=== PATIENT | male | born 1960 | race Two or more races ===

== ENCOUNTER 2019-05-06 11:01 | Inpatient (IN) | payer MEDICAID ==
[~2019-05-06] VITALS: Ht 182.9 cm; Wt 104.5 kg
[2019-05-06] MEDS ORDERED: ondansetron/PF 4mg/2ml inj IV ONE (11:40)
[2019-05-06] MEDS ORDERED: oxyCODONE/APAP 10/325mg tablet PO ONE (12:05)
[2019-05-06 12:11] LABS: BASOPHILS % (AUTO) 0.2 % (0-1); EOSINOPHILS # (AUTO) 0.1 X10'3 (0-0.9); EOSINOPHILS % (AUTO) 1.6 % (0-6); HEMATOCRIT 45.9 % (42.0-52.0); HEMOGLOBIN 15.5 g/dl (14.0-17.9); LYMPHOCYTES # (AUTO) 1.9 X10'3 (1.1-4.8); LYMPHOCYTES % (AUTO) 24.4 % (21-51); MEAN CORPUSCULAR HGB CONC 33.7 g/dL (33.0-36.5); MEAN PLATELET VOLUME 9.5 FL (7.4-10.4); MONOCYTES # (AUTO) 0.6 X10'3 (0-0.9); MONOCYTES % (AUTO) 7.7 % (2-12); NEUTROPHILS # (AUTO) 5.3 X10'3 (1.8-7.7); NEUTROPHILS % (AUTO) 66.1 % (42-75); PLATELET COUNT 210 X10'3 (140-440); RED BLOOD COUNT 5.16 X10'6 (4.70-6.10)
[2019-05-06 12:19] LABS: ALANINE AMINOTRANSFERASE 58 U/L (12-78); ALBUMIN 4.4 G/DL (3.4-5.0); ALBUMIN/GLOBULIN RATIO 1.1 (1.1-1.5); ALKALINE PHOSPHATASE 72 IU/L (46-116); ANION GAP 15 (8-16); ASPARTATE AMINO TRANSFERASE 49 U/L (10-37); BILIRUBIN,TOTAL 0.7 MG/DL (0.1-1.0); BLOOD UREA NITROGEN 56 MG/DL (7-18); BUN/CREATININE RATIO 13.4 (5.4-32.0); CALCIUM 9.2 MG/DL (8.5-10.1); CHLORIDE 98 MMOL/L (99-107); CREATININE 4.19 MG/DL (0.60-1.10); GLUCOSE 133 MG/DL (70-104); LIPASE 76 U/L (73-393); POTASSIUM 4.3 MMOL/L (3.5-5.1); SODIUM 136 MMOL/L (135-145); TOTAL PROTEIN 8.4 G/DL (6.4-8.2); eGFR 15 ML/MIN
[2019-05-06 12:38] LABS: CLARITY,URINE SLIGHTLY CLOUDY (Clear); COLOR,URINE YELLOW (Yellow); GLUCOSE, URINE NEGATIVE (Neg); KETONES,URINE NEGATIVE (Neg); LEUKOCYTE ESTERASE ,URINE NEGATIVE (Neg); NITRITES, URINE NEGATIVE (Neg); OCCULT BLOOD,URINE LARGE (Neg); PH,URINE 5.5 (4.8-8.0); PROTEIN,URINE 100 mg/dl (Neg); UROBILINOGEN,URINE 0.2 E.U/dL (0.2-1.0)
[2019-05-06 12:39] LABS: UA COLLECTION TYPE FOLEY CATH
[2019-05-06] MEDS ORDERED: magnesium 2GM in 50ml NS 50 ML IV PRN (13:10)
[2019-05-06] MEDS ORDERED: acetaminophen 325mg tablet PO PRN ×2 (13:10)
[2019-05-06] MEDS ORDERED: potassium CL 10mEq/100ml bag 100 ML IV PRN ×2 (13:10)
[2019-05-06] MEDS ORDERED: haloperidol lactate 5mg/ml inj IM PRN (13:10)
[2019-05-06] MEDS ORDERED: LORazepam 1 MG tablet PO PRN (13:10)
[2019-05-06] MEDS ORDERED: potassium Cl 20 mEq SR tablet PO PRN ×2 (13:10)
[2019-05-06] MEDS ORDERED: LORazepam 2 mg/ml vial IV PRN (13:10)
[2019-05-06] MEDS ORDERED: dextrose 50%-water 50ml dispensing syringe IV PRN (13:10)
[2019-05-06] MEDS ORDERED: morphine 2 MG/ML inj. syringe IV PRN ×2 (13:10)
[2019-05-06] MEDS ORDERED: ondansetron/PF 4mg/2ml inj IV PRN (13:10)
[2019-05-06] MEDS ORDERED: thiamine 100mg/ml 2ml inj. IV ONE (13:10)
[2019-05-06] MEDS ORDERED: magnesium Cl slow-release 64mg tablet PO PRN (13:10)
[2019-05-06] MEDS ORDERED: HYDROcodone/acetaminophen 5mg/325mg tablet PO PRN (13:10)
[2019-05-06] MEDS ORDERED: magnesium 4gm in 100ml NS 100 ML IV PRN (13:10)
[2019-05-06] MEDS ORDERED: haloperidol 5mg tablet PO PRN (13:10)
[2019-05-06 13:20] LABS: TRANSITIONAL EPI CELLS,URINE FEW /HPF
[2019-05-06 13:21] LABS: BACTERIA,URINE 1+ /HPF (Neg); SQUAMOUS EPITHELIAL CELL,UR FEW /LPF (FEW)
[2019-05-06] MEDS ORDERED: IPRA3AMP31 IH (14:39)
[2019-05-06] MEDS ORDERED: METO50TA7 PO (14:39)
[2019-05-06] MEDS ORDERED: RIVA20TA PO (14:39)
[2019-05-06] MEDS ORDERED: OMEP40CA37 PO (14:39)
[2019-05-06] MEDS ORDERED: LOSA25TA96 PO (14:39)
[2019-05-06] MEDS ORDERED: ALBU8.5H8 INH (14:39)
[2019-05-06] MEDS ORDERED: LORA10TA7 PO (14:39)
[2019-05-06] MEDS ORDERED: DILT240C90 PO (14:39)
[2019-05-06] MEDS ORDERED: UMEC62.5 PO (14:39)
[2019-05-06] MEDS ORDERED: FLO0.4C PO (14:39)
[2019-05-06] MEDS ORDERED: ATOR40TA PO (14:39)
[2019-05-06] MEDS ORDERED: DIGO125T PO (14:42)
[2019-05-06] MEDS ORDERED: PER10325T PO (14:42)
[2019-05-06] MEDS ORDERED: NITR0.4T51 SL (14:42)
[2019-05-06] MEDS ORDERED: LOPE2CAP PO (14:42)
[2019-05-06] MEDS ORDERED: FURO-150 PO (14:42)
[2019-05-06 15:15] VITALS: BP 120/83
[2019-05-06 15:43] LABS: CLARITY,URINE CLEAR (Clear); COLOR,URINE YELLOW (Yellow); GLUCOSE, URINE NEGATIVE (Neg); KETONES,URINE NEGATIVE (Neg); LEUKOCYTE ESTERASE ,URINE NEGATIVE (Neg); NITRITES, URINE NEGATIVE (Neg); OCCULT BLOOD,URINE MODERATE (Neg); PH,URINE 5.5 (4.8-8.0); PROTEIN,URINE 30 mg/dl (Neg); UROBILINOGEN,URINE 0.2 E.U/dL (0.2-1.0)
[2019-05-06] MEDS: normal saline 1000ml 1,000 ML IV SCH (15:44)
[2019-05-06 15:45] LABS: UA COLLECTION TYPE FOLEY CATH
[2019-05-06 15:49] LABS: URINE AMPHETAMINE SCREEN POSITIVE (Neg); URINE BARBITUATE SCREEN NEGATIVE (Neg); URINE BENZODIAZEPINES SCREEN NEGATIVE (Neg); URINE CANNABINOID SCREEN NEGATIVE (Neg); URINE COCAINE SCREEN NEGATIVE (Neg); URINE METHADONE SCREEN NEGATIVE (Neg); URINE OPIATE SCREEN POSITIVE (Neg); URINE PHENCYCLIDINE SCREEN NEGATIVE (Neg)
[2019-05-06 15:51] LABS: BACTERIA,URINE FEW /HPF (Neg); MUCUS STRANDS FEW /LPF (Neg); SQUAMOUS EPITHELIAL CELL,UR MODERATE /LPF (FEW); TRANSITIONAL EPI CELLS,URINE FEW /HPF
--- NOTE | 2019-05-06 16:11 | NUR ---
Patient in room PCU 3023. I have received report from Elena CHESTER from ED and had the opportunity to ask questions and assume patient care.
--- NOTE | 2019-05-06 16:11 | NUR ---
97.3 78 18 120/83 98% on RA, Patient transferred from ED to PCU room 3023B at 1515 with 1 RN, able to ambulate to bed with limited assistance, in bed resting, denies pain/discomfort, all needs met at this time. will continue to monitor.
[2019-05-06] MEDS ORDERED: non-formulary drug (Albuterol Sulfate (Proair Hfa) 2 PUFFS) INH PRN (16:20)
[2019-05-06] MEDS ORDERED: ipratropium/albuterol 3ml nebule IH PRN (16:20)
[2019-05-06] MEDS: HYDROcodone/acetaminophen 10/325mg tab PO PRN (17:30)
--- NOTE | 2019-05-06 18:16 | NUR ---
ORIENTEE documentation: I have reviewed and agree with all interventions, assessments performed and documented by HENRIK BAHENA.
--- NOTE | 2019-05-06 18:17 | NUR ---
Problems reprioritized. Patient report given, questions answered & plan of care reviewed with Ksenia CHESTER.
--- NOTE | 2019-05-06 18:27 | NUR ---
Patient in room PCU 3023. I have received report from HENRIK Gibbons and had the opportunity to ask questions and assume patient care.
[2019-05-06] MEDS: docusate sod 100mg capsule PO SCH (20:00)
[2019-05-06] MEDS: heparin, porcine 5000 units/ml vial SQ SCH (20:00)
[2019-05-06] MEDS ORDERED: temazepam 15mg capsule PO PRN (21:00)
[2019-05-06 23:00] VITALS: BP 98/67
--- NOTE | 2019-05-07 00:14 | NUR ---
Patient refuse norco 5mg and states his pain level is at a 10. He expressed to me that norco 5 mg does not help his pain. I wasted the medication with charge nurse HENRIK Goodman after i had already saved the medication under administer. Will link a note to the medication.
[2019-05-07] MEDS: HYDROcodone/acetaminophen 10/325mg tab PO PRN ×6 (00:20→23:20)
--- NOTE | 2019-05-07 00:27 | NUR ---
[place] 5mg marked as "undo" gave patient 10 mg prn norco instead. Wasted 5 mg prn [place] with charge nurse HENRIK Goodman.
[2019-05-07 02:00] VITALS: BP 132/79
[2019-05-07] MEDS: normal saline 1000ml 1,000 ML IV SCH ×3 (02:57→14:00)
[2019-05-07 06:00] VITALS: BP 138/78
[2019-05-07 06:10] LABS: BASOPHILS % (AUTO) 0.7 % (0-1); EOSINOPHILS # (AUTO) 0.2 X10'3 (0-0.9); EOSINOPHILS % (AUTO) 3.1 % (0-6); HEMATOCRIT 40.4 % (42.0-52.0); HEMOGLOBIN 13.5 g/dl (14.0-17.9); LYMPHOCYTES # (AUTO) 1.8 X10'3 (1.1-4.8); LYMPHOCYTES % (AUTO) 30.2 % (21-51); MEAN CORPUSCULAR HEMOGLOBIN 29.8 PG (27.0-31.0); MEAN CORPUSCULAR HGB CONC 33.4 g/dL (33.0-36.5); MEAN CORPUSCULAR VOLUME 89.3 FL (78-98); MEAN PLATELET VOLUME 9.6 FL (7.4-10.4); MONOCYTES # (AUTO) 0.7 X10'3 (0-0.9); MONOCYTES % (AUTO) 11.7 % (2-12); NEUTROPHILS # (AUTO) 3.2 X10'3 (1.8-7.7); NEUTROPHILS % (AUTO) 54.3 % (42-75); PLATELET COUNT 155 X10'3 (140-440); RED BLOOD COUNT 4.53 X10'6 (4.70-6.10); RED CELL DISTRIBUTION WIDTH 14.8 % (11.5-14.5); WHITE BLOOD COUNT 5.8 X10'3 (4.5-11.0)
--- NOTE | 2019-05-07 06:10 | NUR ---
Patient in room PCU 3023. I have received report from HENRIK Mccormack and had the opportunity to ask questions and assume patient care.
--- NOTE | 2019-05-07 06:30 | NUR ---
Problems reprioritized. Patient report given, questions answered & plan of care reviewed with HENRIK Burks.
[2019-05-07 06:31] LABS: ALANINE AMINOTRANSFERASE 46 U/L (12-78); ALBUMIN 3.4 G/DL (3.4-5.0); ALKALINE PHOSPHATASE 59 IU/L (46-116); ANION GAP 10 (8-16); ASPARTATE AMINO TRANSFERASE 31 U/L (10-37); BILIRUBIN,TOTAL 0.7 MG/DL (0.1-1.0); BLOOD UREA NITROGEN 45 MG/DL (7-18); BUN/CREATININE RATIO 21.5 (5.4-32.0); CALCIUM 8.2 MG/DL (8.5-10.1); CHLORIDE 103 MMOL/L (99-107); CREATININE 2.09 MG/DL (0.60-1.10); GLUCOSE 100 MG/DL (70-104); POTASSIUM 4.3 MMOL/L (3.5-5.1); SODIUM 137 MMOL/L (135-145); TOTAL PROTEIN 6.7 G/DL (6.4-8.2); eGFR 33 ML/MIN
[2019-05-07] MEDS: rivaroxaban 20mg tablet PO SCH (07:21)
[2019-05-07] MEDS: pantoprazole 40mg Tablet.DR PO SCH (07:21)
[2019-05-07] MEDS: diltiazem CD 120mg capsule (once-daily) PO SCH (07:21)
[2019-05-07] MEDS: tamsulosin 0.4mg capsule PO SCH (07:21)
[2019-05-07] MEDS: atorvastatin 20mg tablet PO SCH (07:22)
[2019-05-07] MEDS: docusate sod 100mg capsule PO SCH ×2 (07:22→22:11)
[2019-05-07] MEDS: digoxin 125mcg (0.125mg) tablet PO SCH (07:22)
[2019-05-07] MEDS: heparin, porcine 5000 units/ml vial SQ SCH ×2 (07:23→22:11)
[2019-05-07] MEDS: K and/or MAG REPLACEMENT MC SCH (08:00)
[2019-05-07 11:00] VITALS: BP 127/91
[2019-05-07 15:00] VITALS: BP 128/82
--- NOTE | 2019-05-07 16:59 | NUR ---
Sent to Dr Lubin PAGER ID: [phone] MESSAGE: RE: Giuseppe Grijalva 3023 B. Pt IV infiltrated. He is receiving NS @ 100. May be discharged tomorrow? Would you like a new IV? - Kimmie [phone]
--- NOTE | 2019-05-07 18:28 | NUR ---
IV infiltrated. IV d/c'd. OK to leave out per Dr Lubin.
--- NOTE | 2019-05-07 18:40 | NUR ---
Problems reprioritized. Patient report given, questions answered & plan of care reviewed with Marbin Chaney RN.
--- NOTE | 2019-05-07 18:42 | NUR ---
Patient in room PCU 3023. I have received report from Kimmie CHESTER and had the opportunity to ask questions and assume patient care.
[2019-05-07 19:00] VITALS: BP 114/72
[2019-05-07 23:00] VITALS: BP 124/80
[2019-05-08 03:00] VITALS: BP 121/84
[2019-05-08] MEDS: HYDROcodone/acetaminophen 10/325mg tab PO PRN ×2 (04:33→09:00)
[2019-05-08] MEDS: normal saline 1000ml 1,000 ML IV SCH (05:06)
[2019-05-08 05:59] LABS: BASOPHILS % (AUTO) 0.3 % (0-1); EOSINOPHILS # (AUTO) 0.1 X10'3 (0-0.9); EOSINOPHILS % (AUTO) 2.2 % (0-6); HEMATOCRIT 39.4 % (42.0-52.0); HEMOGLOBIN 13.5 g/dl (14.0-17.9); LYMPHOCYTES # (AUTO) 1.3 X10'3 (1.1-4.8); LYMPHOCYTES % (AUTO) 20.8 % (21-51); MEAN CORPUSCULAR HEMOGLOBIN 30.1 PG (27.0-31.0); MEAN CORPUSCULAR HGB CONC 34.2 g/dL (33.0-36.5); MEAN PLATELET VOLUME 9.5 FL (7.4-10.4); MONOCYTES # (AUTO) 0.6 X10'3 (0-0.9); MONOCYTES % (AUTO) 9.9 % (2-12); NEUTROPHILS # (AUTO) 4.3 X10'3 (1.8-7.7); NEUTROPHILS % (AUTO) 66.8 % (42-75); PLATELET COUNT 146 X10'3 (140-440); RED BLOOD COUNT 4.48 X10'6 (4.70-6.10); RED CELL DISTRIBUTION WIDTH 14.7 % (11.5-14.5); WHITE BLOOD COUNT 6.4 X10'3 (4.5-11.0)
[2019-05-08 06:00] VITALS: BP 137/80
[2019-05-08 06:14] LABS: ALBUMIN 3.2 G/DL (3.4-5.0); ANION GAP 7 (8-16); BLOOD UREA NITROGEN 21 MG/DL (7-18); BUN/CREATININE RATIO 17.6 (5.4-32.0); CALCIUM 8.2 MG/DL (8.5-10.1); CHLORIDE 103 MMOL/L (99-107); CREATININE 1.19 MG/DL (0.60-1.10); GLUCOSE 107 MG/DL (70-104); MAGNESIUM 1.8 MG/DL (1.5-2.4); POTASSIUM 4.4 MMOL/L (3.5-5.1); SODIUM 136 MMOL/L (135-145); TOTAL CARBON DIOXIDE 25.8 MMOL/L (24-32); eGFR 62 ML/MIN
--- NOTE | 2019-05-08 06:20 | NUR ---
Problems reprioritized. Patient report given, questions answered & plan of care reviewed with Marbin Chaney RN. Pt sleeping. Will continue to monitor. Addendum: 05/08/19 at 0628 by Kimmie Matias RN Pt report RECEIVED from Marbin Chaney RN.
--- NOTE | 2019-05-08 06:32 | NUR ---
Problems reprioritized. Patient report given, questions answered & plan of care reviewed with Kimmie RN.
[2019-05-08] MEDS: K and/or MAG REPLACEMENT MC SCH (08:00)
[2019-05-08] MEDS ORDERED: metoprolol succinate 25mg (24-HOUR) SR. Tablet PO SCH (08:00)
--- NOTE | 2019-05-08 08:32 | NUR ---
Sent to Dr Lubin PAGER ID: [phone] MESSAGE: RE: Giuseppe Grijalva [id number]. Pt has heparin and Xarelto ordered. Deliver both? Yesterday you mentioned Xarelto being held. -Kimmie [phone]
[2019-05-08] MEDS: tamsulosin 0.4mg capsule PO SCH (08:55)
[2019-05-08] MEDS: diltiazem CD 120mg capsule (once-daily) PO SCH (08:55)
[2019-05-08] MEDS: docusate sod 100mg capsule PO SCH (08:55)
[2019-05-08] MEDS: rivaroxaban 20mg tablet PO SCH (08:55)
[2019-05-08] MEDS: digoxin 125mcg (0.125mg) tablet PO SCH (08:56)
[2019-05-08] MEDS: pantoprazole 40mg Tablet.DR PO SCH (08:56)
[2019-05-08] MEDS: atorvastatin 20mg tablet PO SCH (08:57)
[2019-05-08 11:00] VITALS: BP 138/87
--- NOTE | 2019-05-08 13:39 | NUR ---
Pt discharged. IV d/c'd, tele removed, all belongings sent with pt. Pt left via yellow cab to [facility]. Pt left in stable condition.
== END 2019-05-08 13:15 | disposition home or self-care (01) | DRG 469 ==
LOC: ER 11:02 → PCU 3S 14:23
PROVIDERS: ADMIT Internal Medicine; ATTEND Hospitalist
DX: N17.9 Acute kidney failure, unspecified (principal); I42.0 Dilated cardiomyopathy; I50.9 Heart failure, unspecified; I11.0 Hypertensive heart disease with heart failure; I48.2 Chronic atrial fibrillation; E66.01 Morbid (severe) obesity due to excess calories; F15.10 Other stimulant abuse, uncomplicated; E78.00 Pure hypercholesterolemia, unspecified; E78.5 Hyperlipidemia, unspecified; F17.200 Nicotine dependence, unspecified, uncomplicated; I34.0 Nonrheumatic mitral (valve) insufficiency; F41.9 Anxiety disorder, unspecified; K21.9 Gastro-esophageal reflux disease without esophagitis; B19.20 Unspecified viral hepatitis C without hepatic coma; Z68.31 Body mass index [BMI] 31.0-31.9, adult; Z90.49 Acquired absence of other specified parts of digestive tract; Z88.6 Allergy status to analgesic agent; Z79.899 Other long term (current) drug therapy; Z79.01 Long term (current) use of anticoagulants; Z82.5 Family history of asthma and other chronic lower respiratory diseases; Z95.810 Presence of automatic (implantable) cardiac defibrillator; Z82.49 Family history of ischemic heart disease and other diseases of the circulatory system; Z80.9 Family history of malignant neoplasm, unspecified
CPT/HCPCS: 36415; 76775; 80048; 80053; 80305; 81001; 82948; 83690; 83735; 85025; 87081; 87088; 93306; 94760; 96374; 96375; 99285; G0378; J1644; J2405; J3411; J7030